=== PATIENT | female | born 1960 | race Caucasian/White ===

== ENCOUNTER 2016-10-20 19:41 | Emergency (ER) | payer OTHER, MEDICAID ==
[~2016-10-20] VITALS: Ht 175.3 cm; Wt 63.0 kg
[~2016-10-20 19:41] MED LIST: CHOL200035 PO; MULT1TAB PO; PARO10TA89 PO; PREG25 PO
[2016-10-20] MEDS ORDERED: HYDR-305 PO (19:49)
[2016-10-20] MEDS ORDERED: ALPR1TAB7 PO (19:49)
[2016-10-20 21:13] LABS: BASOPHILS % (AUTO) 0.4 % (0.0-2.0); EOSINOPHILS % (AUTO) 3.5 % (1.0-6.0); HEMATOCRIT 36.5 % (36-46); HEMOGLOBIN 11.9 g/dL (12.0-16.0); LYMPHOCYTES # (AUTO) 1.8 K/uL (1.0-4.8); LYMPHOCYTES % (AUTO) 35.7 % (22.0-44.0); MEAN CORPUSCULAR HEMOGLOBIN 31.3 pg (26.0-34.0); MEAN CORPUSCULAR HGB CONC 32.6 G/dL (31.0-37.0); MEAN CORPUSCULAR VOLUME 96 fL (80-100); MONOCYTES # (AUTO) 0.6 K/uL (0.1-1.0); NEUTROPHILS # (AUTO) 2.5 K/uL (1.8-7.7); NEUTROPHILS % (AUTO) 48.4 % (40.0-70.0); PLATELET COUNT (AUTO) 276 K/uL (150-450); RED BLOOD CELL COUNT(AUTO) 3.81 MIL/uL (4.00-5.20); RED CELL DISTRIBUTION WIDTH 12.6 % (11.5-14.5); WHITE BLOOD COUNT (AUTO) 5.1 K/uL (4.5-11.0)
[2016-10-20] MEDS: ONDANSETRON HCL 4 MG/2 ML VIAL IVP ONE (21:38)
[2016-10-20] MEDS: KETOROLAC TROMETHAMINE 30 MG/ML VIAL IVP ONE (21:38)
[2016-10-20] MEDS: SODIUM CHLORIDE 0.9% 1,000 ML IV ONE (21:38)
[2016-10-20] MEDS: HYDROmorphone 2 MG/ML SYRINGE IVP ONE (21:43)
[2016-10-20 21:45] LABS: ANION GAP 6 mmol/L (8-16); CALCIUM, TOTAL 8.8 mg/dL (8.8-10.5); CARBON DIOXIDE 31 mmol/L (22-29); CHLORIDE 104 mmol/L (98-107); CREATININE 0.74 mg/dL (0.60-1.30); GLOMERULAR FILTR. RATE CALC > 60 mL/min (>60); POTASSIUM 4.1 mmol/L (3.5-5.1); SODIUM SERUM 141 mmol/L (136-145); UREA NITROGEN, BLOOD 12 mg/dL (7-18)
[2016-10-20 21:51] LABS: ALANINE AMINOTRANSFERASE 32 U/L (12-78); ALBUMIN 3.2 g/dL (3.4-5.0); ASPARTATE AMINOTRANSFERASE 19 U/L (15-37); BILIRUBIN,TOTAL 0.2 mg/dL (0.1-1.0); TOTAL PROTEIN, SERUM 6.7 g/dL (6.4-8.2)
[2016-10-21 00:40] VITALS: BP 122/70
== END 2016-10-21 00:41 | disposition home or self-care (01) ==
LOC: EMS 19:44
DX: K59.00 Constipation, unspecified (principal); M54.9 Dorsalgia, unspecified
CPT/HCPCS: 36415; 74176; 80053; 83690; 84703; 85025; 96374; 96375; 99285; J1170; J1885; J2405; J7030

== ENCOUNTER 2016-12-02 20:42 | Emergency (ER) | payer OTHER ==
[~2016-12-02] VITALS: Ht 175.3 cm; Wt 71.5 kg
[~2016-12-02 20:42] MED LIST changes: +ALPR1TAB7 PO; +HYDR-305 PO
[2016-12-02 21:15] VITALS: BP 131/83
== END 2016-12-02 21:42 | disposition home or self-care (01) ==
LOC: EMS 20:42
DX: S80.862A Insect bite (nonvenomous), left lower leg, initial encounter (principal); S80.861A Insect bite (nonvenomous), right lower leg, initial encounter; S60.562A Insect bite (nonvenomous) of left hand, initial encounter; S60.561A Insect bite (nonvenomous) of right hand, initial encounter; F41.9 Anxiety disorder, unspecified; F32.9 Major depressive disorder, single episode, unspecified; F17.210 Nicotine dependence, cigarettes, uncomplicated; Z79.899 Other long term (current) drug therapy; W57.XXXA Bitten or stung by nonvenomous insect and other nonvenomous arthropods, initial encounter; Y93.89 Activity, other specified; Y92.89 Other specified places as the place of occurrence of the external cause; Y99.8 Other external cause status
CPT/HCPCS: 99283

== ENCOUNTER 2017-05-27 11:54 | Emergency (ER) | payer MEDICAID, OTHER ==
[~2017-05-27] VITALS: Ht 175.3 cm; Wt 70.5 kg
[2017-05-27] MEDS ORDERED: IBUPROFEN 800 MG TABLET PO ONE (14:15)
[2017-05-27 15:45] VITALS: BP 124/68
== END 2017-05-27 15:50 | disposition home or self-care (01) ==
LOC: EMS 11:55
DX: S60.031A Contusion of right middle finger without damage to nail, initial encounter (principal); F32.9 Major depressive disorder, single episode, unspecified; F41.9 Anxiety disorder, unspecified; F17.200 Nicotine dependence, unspecified, uncomplicated; W23.0XXA Caught, crushed, jammed, or pinched between moving objects, initial encounter; Y93.89 Activity, other specified; Y92.89 Other specified places as the place of occurrence of the external cause; Y99.8 Other external cause status
CPT/HCPCS: 99284